=== PATIENT | male | born 1980 | race Caucasian/White ===

== ENCOUNTER 2017-01-22 18:12 | Emergency (ER) | payer BC ==
[~2017-01-22] VITALS: Ht 175.3 cm; Wt 81.6 kg
[2017-01-22] MEDS ORDERED: VITAMIN D1000 UNI1 ORAL (18:27)
[2017-01-22] MEDS ORDERED: PROSCAR5 MG ORAL (18:27)
[2017-01-22] MEDS ORDERED: ANASTROZOLE1 MG PO (18:27)
--- NOTE | 2017-01-22 19:02 | Emergency Room Report ---
History of Present Illness General Chief Complaint: Lower Extremity Injury Source: Patient Present Illness HPI 36 YO male Presents to the emergency department complaining of 9/10 in severity , localized right posterior calf pain with acute onset while playing basketball. Patient states that he landed after jumping and had acute onset of localized sharp pain in the right posterior calf. Patient states that he continued to play and noticed increase in pain. He should and sat out and began to scratch his calf which exacerbated pain as well. Patient denies bruising, erythema reports mild swelling. Denies obvious deformity. he states pain is exacerbated upon walking/ pushing off of his right foot. Patient states pain is relieved with rest. Denies numbness tingling or loss of sensation or gross motor movements of the extremities, incontinence of bowel or bladder. Denies CP, Palpitations, LOC, AMS, dizziness, Changes in Vision, Sensation, paresthesias, or a sudden severe headache. Allergies: Coded Allergies: No Known Allergies (Unverified , 01/22/17) Patient History Past Medical History: see triage record Past Surgical History: none Pertinent Family History: none Immunizations: UTD Reviewed Nursing Documentation: PMH: Agreed, PSxH: Agreed Nursing Documentation-PMH Past Medical History: No Stated History Review of Systems All Other Systems: negative except mentioned in HPI Physical Exam Vital Signs Date Time Temp Pulse Resp B/P Pulse Ox O2 Delivery O2 Flow Rate FiO2 01/22/17 18:20 97.9 113 16 123/79 98 Room Air Sp02 EP Interpretation: reviewed, normal General Appearance: no apparent distress, alert, GCS 15, non-toxic Head: normocephalic, atraumatic Eyes: bilateral eye PERRL, bilateral eye normal inspection ENT: hearing grossly normal, normal voice Neck: full range of motion, supple/symm/no masses Respiratory: lungs clear, normal breath sounds, speaking full sentences Cardiovascular #1: regular rate, rhythm Musculoskeletal: normal range of motion, tender - posterior right calf ttp, no evidence of tendon rupture, small indent palpated in the medial posterior right calf, no bruises, no obvious deformity, mild swelling noted. positive calf squeeze. no erythema or increased temperature to palpation. Neurologic: alert, oriented x3, responsive, motor strength/tone normal, sensory intact, speech normal Skin: normal color, no rash, warm/dry, well hydrated Medical Decision Making PA Attestation Dr. Lopes is my supervising Physician whom patient management has been discussed with. Diagnostic Impression: Primary Impression: Gastrocnemius muscle strain Qualified Codes: S86.111A - Strain of other muscle(s) and tendon(s) of posterior muscle group at lower leg level, right leg, initial encounter Additional Impression: Gastrocnemius muscle tear Qualified Codes: S86.811A - Strain of other muscle(s) and tendon(s) at lower leg level, right leg, initial encounter ER Course 36 YO male Presents to the emergency department complaining of 9/10 in severity , localized right posterior calf pain with acute onset while playing basketball. Patient states that he landed after jumping and had acute onset of localized sharp pain in the right posterior calf. Patient states that he continued to play and noticed increase in pain. He should and sat out and began to scratch his calf which exacerbated pain as well. Patient denies bruising, erythema reports mild swelling. Denies obvious deformity. he states pain is exacerbated upon walking/ pushing off of his right foot. Patient states pain is relieved with rest. Denies numbness tingling or loss of sensation or gross motor movements of the extremities, incontinence of bowel or bladder. Denies CP, Palpitations, LOC, AMS, dizziness, Changes in Vision, Sensation, paresthesias, or a sudden severe headache. Ddx considered but are not limited to Fracture, dislocation, contusion, Sprain/ Strain/Spasm. Vital signs: are WNL, pt. is afebrile H&PE are most consistent with gastrocnemius muscle stain with possible partial tear, no evidence to suggest complete tear or tendon rupture. ORDERS: - imaging not warranted at this time, pt. has no bony ttp. ED INTERVENTIONS: - Pt is provided with crutches -d/w pt conservative treatment plan, rest, and follow up with pcp. d/w pt. that if symptoms persist MRI may be warranted, but complete tear not suspected at this time. DISCHARGE: At this time pt. is stable for d/c to home. Will provide printed patient care instructions, and any necessary prescriptions. Care plan and follow up instructions have been discussed with the patient prior to discharge. Last Vital Signs Date Time Temp Pulse Resp B/P Pulse Ox O2 Delivery O2 Flow Rate FiO2 01/22/17 18:20 97.9 113 16 123/79 98 Room Air Disposition: HOME, SELF-CARE Condition: Stable Scripts Ibuprofen* (MOTRIN*) 800 Mg Tablet 800 MG ORAL THREE TIMES A DAY for 7 Days, #21 TAB 0 Refills Prov: Neda Ortiz 01/22/17 Hydrocodone Bit/Acetaminophen 5-325* (NORCO 5-325*) 1 Each Tablet 1 TAB ORAL Q6H Y for For Pain, #3 TAB 0 Refills Prov: Neda Ortiz 01/22/17 Patient Instructions: Muscle Strain Additional Instructions: Take medications as directed. Follow up with a Primary Care Provider in 3-5 days, even if your symptoms have resolved. If symptoms do not resolve, MRI imaging may be warranted, this is an outpatient procedure which your primary care provider must refer you for. --Please review list of primary care clinics, if you do not already have a primary care provider Return sooner to ED if new symptoms occur, or current symptoms become worse. Do not drink alcohol, drive, or operate heavy machinery while taking Perry as this may cause drowsiness. - Please note that this Emergency Department Report was dictated using [employer] or tailor technology software, occasionally this can lead to erroneous entry secondary to interpretation by the dictation equipment. Neda Ortiz Jan 22, 2017 19:02
[2017-01-22] MEDS ORDERED: NORCO 5-325 TA1 EACH ORAL (19:03)
[2017-01-22] MEDS ORDERED: IBUPROFEN800 MG ORAL (19:03)
[2017-01-22 19:15] VITALS: BP 123/79
== END 2017-01-22 19:15 | disposition home or self-care (01) ==
LOC: EMR 18:49
DX: S86.111A Strain of other muscle(s) and tendon(s) of posterior muscle group at lower leg level, right leg, initial encounter (principal); S86.811A Strain of other muscle(s) and tendon(s) at lower leg level, right leg, initial encounter; X58.XXXA Exposure to other specified factors, initial encounter; Y93.67 Activity, basketball; Y92.9 Unspecified place or not applicable
CPT/HCPCS: 99284